=== PATIENT | female | born 1970 | race Caucasian/White ===

== ENCOUNTER 2019-06-26 07:51 | Emergency (ER) | payer SELFPAY ==
[2019-06-26] MEDS ORDERED: Ondansetron ODT 4 MG TAB ONE (07:59)
[2019-06-26] MEDS ORDERED: Ketorolac Tromethamine 60 MG/2 ML VIAL ONE (08:18)
--- NOTE | 2019-06-26 09:06 | RAD ---
EXAM: XR Lumbar Spine 2 Or 3 View PROVIDED CLINICAL HISTORY: Back pain COMPARISON: None FINDINGS: 5 nonrib-bearing lumbar-type vertebral bodies are present. Lumbar alignment appears normal. Vertebral body heights appear preserved. Intervertebral disc space heights appear preserved. Pedicles appear intact. SI joints appear symmetric. IMPRESSION: Unremarkable lumbar spine radiographs.
[2019-06-26] MEDS ORDERED: Orphenadrine Citrate 60 MG/2 ML VIAL ONE (09:18)
[2019-06-26] MEDS ORDERED: methylPREDNISolone Sod Succ/PF 125 MG/2 ML VIAL ONE (09:18)
== END 2019-06-26 09:40 | disposition home or self-care (01) ==
LOC: NAV ERS 07:51
DX: M54.41 Lumbago with sciatica, right side (principal); M54.42 Lumbago with sciatica, left side; G40.909 Epilepsy, unspecified, not intractable, without status epilepticus; G43.909 Migraine, unspecified, not intractable, without status migrainosus; Z87.891 Personal history of nicotine dependence; Z79.899 Other long term (current) drug therapy
CPT/HCPCS: 72100; 96372; J1885; J2360; J2930; Q0162